=== PATIENT | male | born 1985 | race Caucasian/White ===

== ENCOUNTER 2020-02-23 14:48 | Emergency (ER) | payer SELFPAY ==
[~2020-02-23] VITALS: Ht 162.6 cm; Wt 61.2 kg
[2020-02-23 15:01] VITALS: BP 123/75
--- NOTE | 2020-02-23 15:08 | NUR ---
FOUND LAYING ON GROUND ON [facility] IN [facility] HEAVY ETOH ON BREATH, NO INJURY/TRAUMA NOTED, AMS; ORIENTED TO NAME AND PLACE ONLY MOVING ALL EXTREMITIES EQUALLY , DENIES PAIN AT THIS TIME
--- NOTE | 2020-02-23 15:23 | NUR ---
PATIENT LEFT WITHOUT BEING SEEN BY DR. EDWARDS. NO FURTHER CARE PROVIDED FOR PATIENT. PT AMBULATED OUT OF FACILITY.
== END 2020-02-23 15:20 | disposition left against medical advice (07) ==
LOC: MED 14:48
DX: F10.129 Alcohol abuse with intoxication, unspecified (principal); Z53.21 Procedure and treatment not carried out due to patient leaving prior to being seen by health care provider

== ENCOUNTER 2021-12-02 19:57 | Emergency (ER) | payer SELFPAY ==
[~2021-12-02] VITALS: Ht 154.9 cm; Wt 56.7 kg
[2021-12-02 20:06] VITALS: BP 132/79
--- NOTE | 2021-12-02 21:55 | NUR ---
seen and examined by ARCENIO
== END 2021-12-02 23:05 | disposition left against medical advice (07) ==
LOC: MED 19:57
DX: F10.129 Alcohol abuse with intoxication, unspecified (principal); Z02.89 Encounter for other administrative examinations; Y90.8 Blood alcohol level of 240 mg/100 ml or more
CPT/HCPCS: 99282; 99283